=== PATIENT | female | born 1935 | race Caucasian/White ===

== ENCOUNTER 2017-08-23 01:30 | Inpatient (IN) | payer MEDICARE ==
[2017-08-22 15:20] LABS: INR 0.98
[~2017-08-23] VITALS: Ht 157.5 cm; Wt 66.3 kg
[2017-08-23] VITALS (16 sets, daily range): BP systolic 95–140; BP diastolic 55–72
[~2017-08-23 01:30] MED LIST: AMLO-99 PO; HYDR12.556 PO; LOSA100T67 PO; NAPR220C12 PO
[2017-08-23] MEDS ORDERED: PREGABALIN 75 MG CAPSULE PO ONE (05:25)
[2017-08-23] MEDS ORDERED: CELECOXIB 200 MG CAP PO ONE ×2 (05:25→06:15)
[2017-08-23] MEDS ORDERED: ACETAMINOPHEN 500 MG TAB PO ONE ×2 (05:25→06:15)
[2017-08-23] MEDS ORDERED: PREGABALIN 25 MG CAP ONE (05:31)
[2017-08-23] MEDS ORDERED: PREGABALIN 50 MG CAP ONE (05:32)
[2017-08-23] MEDS ORDERED: FAMOTIDINE 20 MG TAB PO ONE (05:40)
[2017-08-23] MEDS: SCOPOLAMINE 1.5 MG PATCH TD ONE ×2 (05:44→05:54)
[2017-08-23] MEDS ORDERED: MIDAZOLAM 2 MG/2 ML VIAL IVP PRN (06:15)
[2017-08-23] MEDS ORDERED: TRANEXAMIC AC 1000 MG/10ML SDV 1,000 MG in DEXTROSE 5% 50 ML BAG 50 ML IV ONE (06:15)
[2017-08-23] MEDS ORDERED: NORMOSOL R SOLN(*) 1000 ML BAG 1,000 ML IV PRN (06:15)
[2017-08-23] MEDS ORDERED: cloNIDine EPIDUR INJ 100MCG/ML 40 MCG, ROPIVACAINE 0.5% 20 ML VIAL 25 ML, EPINEPHrine H... INJ ONE (06:15)
[2017-08-23] MEDS ORDERED: PREGABALIN PO ONE ×2 (06:15)
[2017-08-23] MEDS ORDERED: VANCOMYCIN 1 GM ADDVIAL 1 GM in NS(*) 0.9% 250 ML ADDVAN BAG 250 ML IVPB ONE (06:15)
[2017-08-23] MEDS ORDERED: LIDOCAINE/SOD BICARB 8.4% SYR ID ONE (06:15)
[2017-08-23] MEDS ORDERED: PREGABALIN 50 MG CAP PO ONE (06:15)
[2017-08-23] MEDS ORDERED: APREPITANT 40 MG CAP PO ONE (06:30)
[2017-08-23] MEDS ORDERED: fentaNYL CITR 100 MCG/2 ML AMP ONE (06:35)
[2017-08-23] MEDS ORDERED: DEXAMETHASONE SOD PHOS 10MG/ML ONE (06:36)
[2017-08-23] MEDS ORDERED: LIDOCAINE MPF 1% 5 ML VIAL ONE (06:36)
[2017-08-23] MEDS ORDERED: PROPOFOL EMUL(*) 10MG/ML 20 ML 20 ML ONE (06:36)
[2017-08-23] MEDS ORDERED: ONDANSETRON 4 MG/2 ML VIAL ONE (06:36)
[2017-08-23] MEDS ORDERED: GELATIN SPONGE 12-7MM ONE (06:39)
[2017-08-23] MEDS ORDERED: EPINEPHrine HCL 1 MG/ML AMP ONE (06:39)
[2017-08-23] MEDS ORDERED: THROMBIN TOP SOLN 5000INTLU VL ONE (06:39)
[2017-08-23] MEDS ORDERED: ROPIVACAINE 0.2% 20 ML VIAL ONE (06:40)
[2017-08-23] MEDS ORDERED: ePHEDrine 25 MG/5 ML DISP.SYR IVP ONE ×2 (07:27→08:27)
[2017-08-23] MEDS ORDERED: SUGAMMADEX SOD 200 MG/2 ML SDV ONE (07:36)
[2017-08-23] MEDS ORDERED: FLUSH 10 ML SYR IVP PRN (09:15)
[2017-08-23] MEDS ORDERED: ONDANSETRON 4 MG/2 ML VIAL IVP PRN (09:15)
[2017-08-23] MEDS ORDERED: KCL/D5LR 20 MEQ/1000 ML PREMIX 1,000 ML IV PRN (09:15)
[2017-08-23] MEDS ORDERED: PROMETHAZINE 25 MG/ML 1 ML AMP IVP PRN (09:15)
[2017-08-23] MEDS ORDERED: NALOXONE HCL 0.4 MG/ML VIAL IVP PRN (09:15)
[2017-08-23] MEDS ORDERED: MORPHINE SULFATE 30 MG PCA IV PRN (09:15)
[2017-08-23] MEDS ORDERED: MAGNESIUM HYDROXIDE* 30ML UDCP PO PRN (09:15)
[2017-08-23] MEDS ORDERED: diphenhydrAMINE 25 MG CAP PO PRN (09:15)
[2017-08-23] MEDS ORDERED: ACETAMINOPHEN 500 MG TAB PO PRN (09:15)
--- NOTE | 2017-08-23 10:57 | Hospitalist Consultation ---
History of Present Illness Requesting Physician Dr. Silvestre Reason for Consult Hypertension Chief Complaint s/p left shoulder surgery History of Present Illness She was admitted s/p left shoulder surgery. It was reported surgery went well and without complication. History Problems: (1) Hypertension Status: Chronic Home Meds Reported Medications Naproxen Sodium (ALEVE) 220 Mg Capsule, 220 MG PO PRN Y for PAIN, CAPSULE 08/15/17 Amlodipine Besylate (AMLODIPINE BESYLATE) 10 Mg Tablet, 1 TAB PO QDAY, TAB 08/15/17 Hydrochlorothiazide (HYDROCHLOROTHIAZIDE) 12.5 Mg Capsule, 1 TAB PO QDAY, CAPSULE 08/15/17 Losartan Potassium (LOSARTAN POTASSIUM) 100 Mg Tablet, 100 MG PO QDAY 08/15/17 Allergies: Coded Allergies: No Known Drug Allergies (Unverified , 08/15/17) Patient History: Unobtainable family history due to adoption Hx Smoking: No Caffeine Intake: Coffee Caffeine/Cups Per Day: 1 CUP OF COFFEE, OCCASIONAL TEA/SODA Hx Alcohol Use: No Hx Substance Use Disorder: No Social Drug Use: Never Review of Systems All Systems Reviewed/Normal: Yes, Except as Noted Exam Vital Signs Vital Signs Date Time Temp Pulse Resp B/P (MAP) Pulse Ox O2 Delivery O2 Flow Rate FiO2 08/23/17 10:22 95 Nasal Cannula 1.0 08/23/17 10:17 97.6 89 12 101/61 (74) General Appearance: No Acute Distress, Afebrile Cardiovascular: Regular Rate and Rhythm Respiratory: No Respiratory Distress, Clear to Auscultation Medical Decision Making Data Points Result Diagram: 08/23/17 0933 Assessment and Plan Problems: (1) Status post replacement of left shoulder joint Status: Acute Assessment & Plan: Followed by Dr. Silvestre. (2) Hypertension Status: Chronic Assessment & Plan: She is on chronic treatment with Losartan, Amlodipine, and Hydrochlorothiazide. Losartan and Amlodipine have been restarted with parameters. Hydrochlorothiazide has been held at this time. Venous Thromboembolism Antithrombotics Is Pt On Any Antithrombotics?: No Exam Sepsis Risk: No Definite Risk DARRIAN SAVAGE TABLE TOP TILE SETTER August 23, 2017 10:57
[2017-08-23] MEDS ORDERED: OXYC5CAP21 PO (11:29)
--- NOTE | 2017-08-23 11:49 | RADIOLOGY IMAGING REPORT ---
FACILITY: [facility] [place] PATIENT NAME: Simin Goode : 1935 MR: [id number] V: [id number] EXAM DATE: ORDERING PHYSICIAN: GERA PICKERING TECHNOLOGIST: Location: [facility] [place] Patient: Simin Goode : 1935 Visit/Account:[id number] Date of Sevice: 08/23/2017 Exam type: SHOULDER 1 VIEW LEFT History: S/P TOTAL SHOULDER ARHTROPLASTY LEFT, CHECK PLACEMENT Comparison: None. Findings: There is a left shoulder arthroplasty that appears in good anatomic alignment on this single AP view. . There is blunting of the left costophrenic angle and airspace consolidation seen in the left lung base IMPRESSION: 1. Left shoulder arthroplasty appears in good anatomic alignment on this single AP view There is blunting left costophrenic angle consistent with left pleural effusion versus pleural thicke evangelist There is airspace consolidation in the left lung base consistent with infiltrate and/or atelectasis. Report Dictated By: Marie Morales MD at 08/23/2017 11:43 AM Report E-Signed By: Marie Morales MD at 08/23/2017 11:44 AM WSN:[id number]
--- NOTE | 2017-08-23 15:47 | OPERATIVE REPORT 1 ---
EVENT DATE: August 23, 2017 SURGEON: Ronal Silvestre MD ANESTHESIOLOGIST: Dillan Fernandez MD ANESTHESIA: General plus scalene block. CRANE OPERATOR: SHOBHA Avila PREOPERATIVE DIAGNOSIS Left shoulder degenerative joint disease. POSTOPERATIVE DIAGNOSIS Left shoulder degenerative joint disease. PROCEDURE PERFORMED Left total shoulder arthroplasty. ESTIMATED BLOOD LOSS 100 INTRAVENOUS FLUIDS Crystalloid 1000, no colloid. TOURNIQUET TIME None. SPECIMENS None. COMPLICATIONS None. IMPLANTS USED DePuy LTS Unite Anatomic with a 44 Seth Peg Glenoid, a 14 stem, a 14 body, and a 48 x 18 eccentric head. SUMMARY OF PROCEDURE The patient was brought into the operating room and placed on the OR table in the supine position. She was given a scalene block and then the general anesthetic and placed in the semi-supine beach chair position. The left shoulder was prepped and draped in the usual sterile fashion. A deltopectoral approach followed. The cephalic vein was identified and taken laterally with the deltoid. We used a blunt instrument to free up the subdeltoid plane and inspect the rotator cuff, which was in adequate condition for an anatomic total shoulder arthroplasty. An incision was then made in the subscapularis approximately 1 cm medial to the insertion. Tagging sutures were placed. We had identified the conjoined tendon previously and placed a retractor. The fluid was clear. We then exposed the head and removed osteophytes. We made our cut in the anatomic plane matching her version, which ended up being approximately 30 to 35 degrees of retroversion. We removed the excess osteophytes around the periphery and then placed a covering cap on the cut surface, pushing it posteriorly. The labrum was removed. The biceps was resected, and then we placed posterior retractors to expose the glenoid. After initial preparation and sizing, it looked like a 44 would fit best. She had a tremendous amount of osteophyte on the segment of the head we removed. Initially, it looked like it was over 50, but without osteophytes and watching the actual mentasta bone land on the cut surface, it looked like a 48 would fit best. The 44 fit well on the glenoid, so after marking the central hole, we started to drill and then finished the drill, after which we did the three peripheral drill pegs. This was removed, and we trialed the peg trial which fit very nicely with no rock and no lift. Thrombin-soaked Gelfoam was inserted into the three peripheral holes and the central hole. I used bone from the cut surface of the head to pack into the interstices of the Seth Peg Glenoid. We mixed cement, injected into the three peripheral holes after having removed the thrombin-soaked Gelfoam sponges and then inserted the Seth Peg Glenoid, holding it under compression until full polymerization. The shaft was then drawn forward, and we began to ream progressively larger, getting up to a 14. We then used the Brosteotome, checking version. We did modify the version slightly to match the head and then used bone graft in the medial side so we could ensure that the shaft was displaced sufficiently laterally to allow for an eccentric head to match the articular surface superiorly at the insertion of the rotator cuff. We then trialed a couple different heads. It looked like a 48 x 18 eccentric would fit the best. We then switched this out to the final stem and body with the head and impacted it into position. It had a good fit. We had previously placed two #2 FiberWire sutures for augmentation of the subscapularis repair, and once the head was in place and trialed nicely with adequate posterior and inferior shift and no impingement on scaption, we then went about closure. First, the wound was irrigated as it had been throughout the case, and then the subscapularis was closed using nonabsorbable #2 suture. The wound was irrigated again. We had injected cocktail into the deep structures around the glenoid, and now we injected a little bit more around the conjoined tendon and the surfaces where we had made our skin incision to augment the block. This was mainly done because Dr. Fernandez advised that he had intentionally done a fairly short-acting light block because he did not want to compromise her lungs too long. Subcutaneous and subcuticular closure followed, and she was then awakened and transferred to the recovery room in stable condition. STEPHANIE
[2017-08-24 05:17] VITALS: BP 113/63
[2017-08-24 06:19] LABS: PLATELET COUNT, AUTOMATED 187 K/uL (150-450)
[2017-08-24] MEDS ORDERED: LOSARTAN POTASSIUM 50 MG TAB PO SCH (09:00)
[2017-08-24] MEDS ORDERED: amLODIPine BESYL(*) 5 MG TAB PO SCH (09:00)
[2017-08-24 09:35] VITALS: BP 115/67
[2017-08-24 12:09] VITALS: BP 141/73
[2017-08-24 14:20] VITALS: Ht 157.5 cm; Wt 66.3 kg
== END 2017-08-24 13:35 | disposition home or self-care (01) | DRG 483 ==
LOC: OR 01:30 → MED 10:15
PROVIDERS: ADMIT Orthopaedic Surgery Hand Surgery; ATTEND Orthopaedic Surgery Hand Surgery
PROC: 0RRK0JZ Replacement of Left Shoulder Joint with Synthetic Substitute, Open Approach (ICD-10-PCS; principal; 2017-08-23 07:10)
DX: M19.012 Primary osteoarthritis, left shoulder (principal); I10 Essential (primary) hypertension; K21.9 Gastro-esophageal reflux disease without esophagitis; F32.9 Major depressive disorder, single episode, unspecified; J44.9 Chronic obstructive pulmonary disease, unspecified; Z90.710 Acquired absence of both cervix and uterus
CPT/HCPCS: 36415; 76942; 85014; 85018; 85025; 85610; 86850; 86900; 86901; 97165; A4565; C1713; C1776; J0171; J0735; J1100; J1885; J2001; J2405; J2704; J2795; J3010; J3370; J7050; J7060; J8501; Q0163

== ENCOUNTER 2018-05-30 00:50 | Inpatient (IN) | payer MEDICARE ==
[2018-05-30] VITALS (13 sets, daily range): BP systolic 101–172; BP diastolic 61–83
[~2018-05-30] VITALS: Ht 157.5 cm; Wt 62.6 kg
[~2018-05-30 00:50] MED LIST changes: +AMLO-127 PO; -AMLO-99 PO; -LOSA100T67 PO; +LOSA100T75 PO; +OXYC5CAP21 PO
[2018-05-30] MEDS ORDERED: CELECOXIB 200 MG CAP PO ONE (08:10)
[2018-05-30] MEDS ORDERED: NORMOSOL R SOLN(*) 1000 ML BAG 1,000 ML IV PRN (08:10)
[2018-05-30] MEDS ORDERED: MIDAZOLAM 2 MG/2 ML VIAL IVP PRN ×2 (08:10→13:25)
[2018-05-30] MEDS ORDERED: TRANEXAMIC AC 1000 MG/10ML SDV 1,000 MG in DEXTROSE 5% 50 ML BAG 50 ML IV ONE (08:10)
[2018-05-30] MEDS ORDERED: LIDOCAINE/SOD BICARB 8.4% SYR ID ONE (08:10)
[2018-05-30] MEDS ORDERED: PREGABALIN 75 MG CAPSULE PO ONE (08:10)
[2018-05-30] MEDS ORDERED: ACETAMINOPHEN 500 MG TAB PO ONE (08:10)
[2018-05-30] MEDS ORDERED: FAMOTIDINE 20 MG TAB PO ONE (08:10)
[2018-05-30] MEDS ORDERED: ROPIVACAINE/EPI/CLONIDINE/KET 50 ML SYRINGE INJ ONE (08:10)
[2018-05-30] MEDS ORDERED: VANCOMYCIN 1 GM ADDVIAL 1 GM in NS(*) 0.9% 250 ML ADDVAN BAG 250 ML IVPB ONE (11:15)
[2018-05-30] MEDS ORDERED: THROMBIN TOP SOLN 5000INTLU VL ONE (11:26)
[2018-05-30] MEDS ORDERED: ONDANSETRON 4 MG/2 ML VIAL ONE (11:46)
[2018-05-30] MEDS ORDERED: PROPOFOL EMUL(*) 10MG/ML 20 ML 20 ML ONE (11:46)
[2018-05-30] MEDS ORDERED: fentaNYL CITR 100 MCG/2 ML AMP ONE (11:46)
[2018-05-30] MEDS ORDERED: DEXAMETHASONE SOD PHOS 10MG/ML ONE (11:46)
[2018-05-30] MEDS ORDERED: ROCURONIUM BROM 10 MG/ML 10 ML ONE (11:46)
[2018-05-30] MEDS ORDERED: LIDOCAINE MPF 1% 5 ML VIAL ONE (11:46)
[2018-05-30] MEDS ORDERED: KETAMINE HCL-NS 50 MG/5 ML SYR ONE (11:47)
[2018-05-30] MEDS ORDERED: BUPIV/EPI 0.25% 1:200,000 50ML INFIL ONE (13:24)
[2018-05-30] MEDS ORDERED: SUGAMMADEX SOD 500 MG/5 ML SDV ONE (15:48)
[2018-05-30] MEDS ORDERED: FLUSH 10 ML SYR IVP PRN (16:50)
[2018-05-30] MEDS ORDERED: diphenhydrAMINE 25 MG CAP PO PRN (16:50)
[2018-05-30] MEDS ORDERED: PROMETHAZINE 25 MG/ML 1 ML AMP IVP PRN (16:50)
[2018-05-30] MEDS ORDERED: KCL/D5LR 20 MEQ/1000 ML PREMIX 1,000 ML IV PRN (16:50)
[2018-05-30] MEDS ORDERED: MORPHINE SULFATE 30 MG PCA IV PRN (16:50)
[2018-05-30] MEDS ORDERED: MAGNESIUM CITRATE 300 ML BTL PO PRN (16:50)
[2018-05-30] MEDS ORDERED: NALOXONE HCL 0.4 MG/ML VIAL IVP PRN (16:50)
[2018-05-30] MEDS ORDERED: ACETAMINOPHEN 500 MG TAB PO PRN (16:50)
[2018-05-30] MEDS ORDERED: ONDANSETRON 4 MG/2 ML VIAL IVP PRN (16:50)
--- NOTE | 2018-05-30 16:53 | RADIOLOGY IMAGING REPORT ---
FACILITY: [facility] PATIENT NAME: Simin Goode : 1935 MR: [id number] V: [id number] EXAM DATE: ORDERING PHYSICIAN: GERA PICKERING TECHNOLOGIST: [place] [facility] [place] Simin Goode : 1935 Visit/Account:[id number] Date of Sevice: 05/30/2018 SHOULDER 1 VIEW RIGHT COMPARISONS: None. ADDITIONAL PERTINENT HISTORY: Status post total right shoulder arthroplasty FINDINGS: Osseous structures: Patient status post total right shoulder arthroplasty. No bony fractures. Joint spaces: Components in good position. Surrounding soft tissues: Negative. IMPRESSION: 1. Patient status post total right shoulder arthroplasty. 2. No periprocedural complication noted. Report Dictated By: Devin Salguero MD at 05/30/2018 4:48 PM Report E-Signed By: Devin Salguero MD at 05/30/2018 4:49 PM WSN:[id number]
[2018-05-30] MEDS ORDERED: PCA LOCKBOX KEYS XX PRN (17:20)
--- NOTE | 2018-05-30 17:31 | OPERATIVE REPORT 1 ---
EVENT DATE: May 30, 2018 SURGEON: Ronal Silvestre MD ANESTHESIOLOGIST: Kwesi Lucia MD ANESTHESIA: General plus scalene block. SALES ADVISORY MANAGER: SHOBHA Avila PREOPERATIVE DIAGNOSES 1. Right shoulder degenerative joint disease. 2. Extensive biceps tearing. 3. Multiple loose bodies in biceps sheath. POSTOPERATIVE DIAGNOSES 1. Right shoulder degenerative joint disease. 2. Extensive biceps tearing. 3. Multiple loose bodies in biceps sheath. PROCEDURES PERFORMED 1. Removal of 3 to 4 loose bodies in biceps sheath. 2. Resection of biceps for biceps tenotomy and tenodesis. 3. Total shoulder arthroplasty (32055). ESTIMATED BLOOD LOSS 75 INTRAVENOUS FLUID Crystalloid 1600; colloid none. TOURNIQUET TIME None. SPECIMENS None. COMPLICATIONS None. IMPLANTS USED Catglobe modular total shoulder with a 14 stem and epiphyseal component 18 x 48 eccentric head and 44 Glenoid [place] Peg. SUMMARY OF PROCEDURE The patient was brought into the operating room and placed on the OR table in the supine position. She was given a scalene block and then a general anesthetic. Her right shoulder was then prepped and draped in the usual sterile fashion in a semi-beach chair position. A deltopectoral approach was taken, deepened through skin and subcutaneous tissue. The cephalic vein was left with the deltoid. The conjoined tendon was identified and the axillary nerve palpated. She was quite a bit tighter than average in this region, but her subdeltoid plane was easy to develop. We started by removing the loose bodies from the biceps sheath. There were several of them. They were fairly large and calcified. For the time being, we left the biceps in place. We then cut the subscapularis and placed it on traction sutures. The fluid was clear. The head was resected, as were the osteophytes, and then smoothed at the margin and neck. The capsule was resected away from the humeral neck. A protective cap was placed on the cut surface, and the bone was quite dense. We then circumferentially dissected the glenoid. It took a while to do this, but eventually we were able to get good exposure here. It looked like a 44 would fit best. We marked the central drill peg and then drilled a portion of it, but then used the guide for the face reamer to make sure that our peg was perpendicular. We reamed down far enough to eliminate the pseudo glenoid that had formed. Very little additional reaming was necessary as it was very shallow. We then prepared for the peripheral drill holes, trialed a 4-prong stem, and it fit fine, so then we placed thrombin-soaked Gelfoam into the holes while we mixed cement and prepared the implant with bone graft in its fins. The thrombin was removed, the cement injected after drying the region, and then we inserted the implant and held it until full polymerization. We irrigated as we had before doing this both with saline as well as with the solution to minimize bacterial integrity (Irrisept). We then directed our attention to the stem. As the other side was also seen, this one was 14. We trialed with using an eccentric 48 x 18, and it seemed to work quite well. We compared this to the head that was resected, and it was approximately the same or slightly smaller, which would make up for the depth of the glenoid. The final trial was placed after placing sutures for subcutaneous augmentation of the subscapularis repair. The wound was irrigated one more time. Local injection was given throughout the periphery of the joint. The biceps was resected at the glenoid margin and then pulled out into the extra-articular portion, or it was tenodesed with the soft tissue technique using suture (#2). The subscapularis was repaired using both local tissue as well as the augmentation sutures placed previously into the neck of the humerus. The wound was irrigated one more time before closing subcutaneous tissue with 3-0 Vicryl, and then 4-0 Monocryl completed the closure. She was awakened and transferred to the recovery area in stable condition. STEPHANIE
--- NOTE | 2018-05-30 17:32 | Hospitalist Progress Note ---
Subjective Progress Notes Subjective Patient seen post-op. Reviewed PMHx (HTN) and medications (losartan, HCTZ, amlodipine). At present she denies any CP, SOB, N/V. Physical Exam Vital Signs Date Time Temp Pulse Resp B/P (MAP) Pulse Ox O2 Delivery O2 Flow Rate FiO2 05/30/18 17:22 97.7 73 12 148/77 (100) 93 Nasal Cannula 2.0 General Appearance: Other (slightly somnolent, but awakens easily and answers questions) Cardiovascular: Regular Rate and Rhythm Respiratory: Clear to Auscultation Result Diagram: 05/30/18 7034 Assessment and Plan Problems: (1) Hypertension Status: Chronic Assessment & Plan: Will monitor her BPs and resume her medications as needed. (2) S/P shoulder replacement Status: Acute Assessment & Plan: She appears to have tolerated OR/anesthesia fairly well. Continue as per Dr. Silvestre. Problem Qualifiers (1) S/P shoulder replacement: Laterality: right Qualified Codes: Z96.611 - Presence of right artificial shoulder joint STEPHEN CHOUDHARY MD May 30, 2018 17:32
[2018-05-30] MEDS ORDERED: amLODIPine BESYL(*) 5 MG TAB PO SCH (21:00)
[2018-05-30] MEDS ORDERED: LOSARTAN POTASSIUM 50 MG TAB PO SCH (21:00)
[2018-05-31 02:48] VITALS: BP 126/73
[2018-05-31 06:02] LABS: PLATELET COUNT, AUTOMATED 187 K/uL (150-450)
--- NOTE | 2018-05-31 07:31 | Hospitalist Progress Note ---
Subjective Progress Notes Subjective Doing well with minimal pain in shoulder. Wants to go home but will need O2 for a while due to low sats on RA at rest and with activity. No SOB, cough or sputum production. Physical Exam Vital Signs Date Time Temp Pulse Resp B/P (MAP) Pulse Ox O2 Delivery O2 Flow Rate FiO2 05/31/18 02:49 80 05/31/18 02:48 97.9 79 12 126/73 (90) Nasal Cannula 1.0 Intake and Output 05/31/18 07:00 Intake Total 4490 ml Output Total 100 ml Balance 4390 ml Intake Oral 240 ml IV Total 2250 ml Other 2000 ml Output Estimated Blood Loss 100 ml # Voids 2 General Appearance: Alert, Awake, No Acute Distress, Afebrile Cardiovascular: Regular Rate and Rhythm, Other (S1S2 are normal.) Respiratory: Clear to Auscultation, Other (No wheezing or ronchi.) Psych: Alert & Oriented X3, Appropriate Mood & Affect Result Diagram: 05/31/18 0521 Assessment and Plan Problems: (1) Hypertension Status: Chronic Assessment & Plan: Resume her medications at [facility]. (2) S/P shoulder replacement Status: Acute Assessment & Plan: She appears to have tolerated OR/anesthesia fairly well. Will need O2 at home at 1 L/min and she will follow-up with her primary care provider and Dr. Silvestre. Time Spent on Plan of Care: > 30 min Exam Sepsis Risk: No Definite Risk Problem Qualifiers (1) S/P shoulder replacement: Laterality: right Qualified Codes: Z96.611 - Presence of right artificial shoulder joint WON PAIZ MD FACP May 31, 2018 07:31
[2018-05-31] MEDS ORDERED: ASPI-757 PO (07:34)
[2018-05-31 08:21] VITALS: BP 125/71
--- NOTE | 2018-05-31 08:39 | NUR ---
Occupational Therapy Impression Pt alert and agreeable to OT tx. SpO2 WNL on 1L throughout tx. One bout of emesis, pt attributing to not having had substantial meal since prior to sx. Pt educated on precautions, wear/fit of sling, ther ex per protocol and ADLs. Pt (I) with all ADLs and mobility. Reporting no pain throughout tx. Educated to call clinic of choice Saturday to set-up outpatient PT per Dr. Silvestre referral. Pt verbalized understanding with no further questions/concerns for OT at end of tx. Occupational Therapy Goals Patient's Goal
[2018-05-31] MEDS ORDERED: HYDROCHLOROTHIAZIDE 25 MG TAB PO SCH (09:00)
[2018-05-31 10:12] VITALS: Ht 157.5 cm; Wt 62.6 kg
[2018-05-31] MEDS ORDERED: OXYC5TAB38 PO (10:31)
[2018-05-31 12:12] VITALS: BP 137/69
[2018-05-31] MEDS ORDERED: ORP100 PO (13:55)
[2018-05-31] MEDS ORDERED: OXYC5CAP21 PO (13:55)
== END 2018-05-31 14:25 | disposition home or self-care (01) | DRG 483 ==
LOC: OR 00:50 → MED 17:15
PROVIDERS: ADMIT Orthopaedic Surgery Hand Surgery; ATTEND Orthopaedic Surgery Hand Surgery
PROC: 0RRJ0JZ Replacement of Right Shoulder Joint with Synthetic Substitute, Open Approach (ICD-10-PCS; principal; 2018-05-30 13:26)
PROC: 0LS30ZZ Reposition Right Upper Arm Tendon, Open Approach (ICD-10-PCS; 2018-05-30 13:26)
DX: M19.011 Primary osteoarthritis, right shoulder (principal); S46.211A Strain of muscle, fascia and tendon of other parts of biceps, right arm, initial encounter; M67.813 Other specified disorders of tendon, right shoulder; F41.9 Anxiety disorder, unspecified; I10 Essential (primary) hypertension; K21.9 Gastro-esophageal reflux disease without esophagitis; F32.9 Major depressive disorder, single episode, unspecified; Z96.612 Presence of left artificial shoulder joint
CPT/HCPCS: 36415; 76942; 85014; 85018; 85025; 85610; 86850; 86900; 86901; 97165; A4565; C1713; C1776; J1100; J2001; J2250; J2405; J2704; J3010; J3370; J3490; J7050; J7060